=== PATIENT | male | born 1965 | race Caucasian/White ===

== ENCOUNTER 2018-07-04 09:03 | Observation (INO) ==
[2018-07-04] MEDS ORDERED: 0.9 % Sodium Chloride 1,000 ML IVC ONE (09:09)
--- NOTE | 2018-07-04 09:12 | Emergency Department Note ---
Disposition Clinical Impression: Hallucinations, Frequent falls, Weakness generalized Disposition: Admitted As Inpatient Condition: Fair Forms: ED Satisfaction Letter Time of Disposition: 12:25 Fall HPI - General Chief Complaint: ED Fall Stated Complaint: frequent falls at home, back pain Time Seen by Provider: 07/04/18 09:08 Source: patient, EMS Mode of arrival: EMS Limitations: no limitations Nursing Notes Reviewed: Yes Vital Signs Reviewed: Yes - History of Present Illness Pt Subjective Complaint: fall Onset (ago): hour(s) Fall From: standing Fall Witnessed: no Place Fall Occurred: home Loss of Consciousness: none Prolonged Down Time?: unclear Symptoms Prior to Fall: none Context: other (Patient states that someone was trying to break into his house we called the police and in the excitement he says he tripped and fell to the ground. On him on the ground. Called EMS.) Location of injury: back Location of injury - extremities: Right: elbow (Abrasion) Severity: moderate Quality: sharp Associated symptoms (after fall): Denies: headache, neck pain, numbness - Related Data Home Medications Medication Instructions Recorded Confirmed Acetaminophen [Tylenol] 500 mg PO Q6HR PRN 06/26/18 06/27/18 Alogliptin Benzoate [Alogliptin] 25 mg PO DAILY 06/26/18 06/27/18 Aspirin [Lo-Dose Aspirin EC] 81 mg PO DAILY 06/26/18 06/27/18 Atorvastatin [Lipitor] 40 mg PO HS 06/26/18 06/27/18 Calcitriol [Rocaltrol] 0.25 mcg PO SUTUTH 06/26/18 06/27/18 Cholecalciferol (Vitamin D3) 1,000 unit PO QAM 06/26/18 06/27/18 [Vitamin D3] Labetalol HCl 400 mg PO BID 06/26/18 06/27/18 NIFEdipine XL (24 HR) [Procardia 30 mg PO DAILY 06/26/18 06/27/18 XL] Omeprazole [PriLOSEC] 20 mg PO DAILY 06/26/18 06/27/18 Tamsulosin [Flomax] 0.4 mg PO DAILY 06/26/18 06/27/18 Ammonium Lactate 1 - 2 gm TP QID PRN 06/27/18 06/27/18 Ergocalciferol (VITAMIN D2) 50,000 unit PO QWEEK 06/27/18 06/27/18 [Vitamin D2] GlipiZIDE XL (24 HR) [Glucotrol XL] 10 mg PO DAILY 06/27/18 06/27/18 Previous Rx's Medication Instructions Recorded Ketorolac [Toradol] 10 mg PO Q6HR #20 tablet 06/26/18 PredniSONE [Deltasone] 40 mg PO DAILY #10 tablet 06/26/18 Allergies Allergy/AdvReac Type Severity Reaction Status Date / Time No Known Allergies Allergy Verified 06/27/18 16:42 All systems ED: reviewed and negative except as stated. Constitutional: Denies: fever, chills Eyes: Denies: vision change ENT ED: Denies: ear pain, throat pain, congestion Cardiovascular: Denies: chest pain, palpitations Respiratory: Denies: cough, dyspnea Gastrointestinal: Denies: abdominal pain, vomiting, diarrhea Musculoskeletal: Reports: back pain. Denies: neck pain Integumentary: Denies: rash Neurological: Denies: headache, numbness Fall PMH - Past Medical History Medical history: Reports: CVA, diabetes, hypertension, other Psychiatric history: Reports: no psych history - Social History Smoking Status: Never smoker Alcohol use: Reports: none Drug use: Reports: none Physical Exam - General Limitations: no limitations General appearance: alert, in no apparent distress - Head Head exam: normocephalic, other (Abrasion to top of head) - Eye Eye exam: Present: normal appearance, PERRL, EOMI. Absent: scleral icterus, conjunctival injection, nystagmus - ENT ENT exam: normal exam, normal oropharynx, mucous membranes moist, normal external ear exam - Neck Neck exam: Present: normal inspection, trachea midline. Absent: tenderness - Chest Chest inspection: Present: normal inspection, symmetric chest wall rise. Absent: tenderness - Respiratory Respiratory exam: Present: normal lung sounds bilaterally. Absent: respiratory distress, wheezes - Cardiovascular Cardiovascular exam: Present: normal rhythm, tachycardia, normal heart sounds - Abdominal Exam Abdominal exam: Present: soft, Non-Tender, normal bowel sounds - Extremities Exam Extremities exam: Present: full ROM, other (Small abrasion to right elbow). Absent: tenderness - Expanded Lower Extremity Exam Hip/Pelvis exam: Present: normal inspection. Absent: tenderness - Neurological Exam Neurological exam: Present: alert, oriented X3. Absent: motor sensory deficit - Psychiatric Psychiatric exam: Present: normal affect, normal mood - Skin Skin exam: Present: warm, diaphoresis. Absent: rash Course Course Narrative: Patient presents emergent from it while he himself is describing a simple fall and gives good reasoning for the fall. However that does not explain Why he could not get up. According to nursing staff, he has had a couple falls. On my exam he is alert and oriented but he is tachycardic and hypertensive and is clammy and diaphoretic. It seems like something else is going on at this point besides a simple fall. I am going to work him up from a traumatic standpoint with a head CT and cervical spine CT and lumbar spine CT since is complaining of low back pain. But I am going to do a workup for these abnormal vital signs and apparent weakness and falls. I will get some IV fluids into him. Full workup. Disposition will be based on diagnostic results and reevaluation. - Reevaluation(s) Reevaluation #1: Patient's blood work is all come back okay. Urinalysis is negative. His imaging studies are fine. Kidney functions are little bit elevated but they are not really far off her baseline. So not finding anything to clearly make a diagnosis here. However I am being told by caregivers that the patient is hallucinating over the past few days. His mental status is off. They talk about him saying that he seeing groundhog's in his bathtub. Twice today he thought somebody was trying to break into his house and that is one of the reasons he fell. We do not know the validity of that. While he was on the backboard he was tachycardic and little bit diaphoretic and hypertensive. However was really unremarkable backboard and he was able sit up at all settle down. But I feel that there is something wrong with this patient. I just cannot put my finger on the diagnosis. I think he needs to be admitted to the hospital for little bit further workup and observed to see if this changes or if anything actually makes itself clear. I discussed the case with the hospitalist. He is accepted the patient for admission. Time: 12:20 - Consultations Consultation #1: Dr. Munoz, hospitalist - I discussed the case with the hospitalist. He accepted the patient for admission Time: 12:15 Vital Signs Temperature 99 F 07/04/18 09:07 Pulse Rate 130 07/04/18 09:07 Respiratory Rate 22 07/04/18 09:07 Blood Pressure 205/149 07/04/18 09:07 O2 Sat by Pulse Oximetry 97 07/04/18 09:07 Temperature 99 F 07/04/18 09:07 Pulse Rate 108 07/04/18 11:55 Respiratory Rate 18 07/04/18 11:55 Blood Pressure 156/100 07/04/18 11:55 O2 Sat by Pulse Oximetry 96 07/04/18 11:55 Oxygen Delivery Oxygen Delivery Room Air Fall - Medical Records Medical records reviewed: Yes I reviewed the patient's medical records. - Lab Data Lab results reviewed: Yes I reviewed the patient's lab results. Result diagrams: 07/04/18 09:23 07/04/18 09:23 Lab Results 07/04/18 07/04/18 07/04/18 Range/Units 09:23 09:23 09:23 WBC 6.7 (4.3-11.1) K/mcL RBC 3.90 L (4.19-5.50) M/mcL Hgb 11.9 L (12.9-16.9) g/dL Hct 35.7 L (37.5-50.1) % MCV 91.5 (83.0-100.0) fL MCH 30.5 (28.0-33.3) pg MCHC 33.3 (31.6-35.5) g/dL RDW 12.6 (11.5-14.5) % Plt Count 194 (140-400) K/mcL MPV 10.5 (9.4-12.4) fL Immature Gran % 0.4 (0-4) % Seg Neutrophils % 68.1 % Lymphocytes % 15.3 % Monocytes % 12.2 % Eosinophils % 3.1 % Basophils % 0.9 % Neutrophils # 4.6 (1.6-8.9) K/mcL Lymphocytes # 1.0 (0.6-4.6) K/mcL Monocytes # 0.8 (0.0-1.3) K/mcL Eosinophils # 0.2 (0.0-0.6) K/mcL Basophils # 0.1 (0.0-0.2) K/mcL Sodium 140 (136-145) mEq/L Potassium 4.3 (3.5-5.1) mEq/L Chloride 106 (98-107) mEq/L Carbon Dioxide 26 (23-29) mEq/L BUN 26 H (6-20) mg/dL Creatinine 1.99 H (0.70-1.30) mg/dL Est GFR ( Amer) 43 L (> 60) Est GFR (Non-Af Amer) 35 L (> 60) BUN/Creatinine Ratio 13 (6-26) Glucose 188 H (70-105) mg/dL Calculated Osmolality 300 (280-300) Lactic Acid 1.2 (0.5-2.2) mmol/L Calcium 9.6 (8.6-10.3) mg/dL Total Bilirubin 1.0 (0.3-1.0) mg/dL Direct Bilirubin 0.2 (0.0-0.2) mg/dL Indirect Bilirubin 0.8 (0.0-1.2) mg/dL AST 21 (13-39) Units/L ALT 26 (7-52) Units/L Alkaline Phosphatase 128 H (34-104) Units/L Creatine Kinase (30-223) Units/L Troponin I < 0.03 (< 0.04) ng/mL Serum Total Protein 7.7 (6.4-8.9) g/dL Albumin 4.5 (3.5-5.7) g/dL Globulin 3.2 (2.4-3.5) g/dL Albumin/Globulin Ratio 1.4 (1.1-2.2) Urine Color (Yellow) Urine Clarity (Clear) Urine pH (5.0-8.0) pH Units Ur Specific [place] (1.010-1.025) Urine Protein (Neg-Trace) mg/dL Urine Glucose (UA) (Normal) mg/dL Urine Ketones (Negative) mg/dL Urine Blood (Negative) Urine Nitrite (Negative) Urine Bilirubin (Negative) Urine Urobilinogen (Normal) mg/dL Ur Leukocyte Esterase (Negative) Urine Microscopic RBC (0-3) per hpf Urine Microscopic WBC (0-3) per hpf Ur Squamous Epith Cells (None-Few) per lpf Amorphous Sediment (Few) Urine Bacteria (None-Few) per hpf Ur Culture Indicated? (NO) Ur Drug Screen Interp 07/04/18 07/04/18 07/04/18 Range/Units 09:23 11:10 12:00 WBC (4.3-11.1) K/mcL RBC (4.19-5.50) M/mcL Hgb (12.9-16.9) g/dL Hct (37.5-50.1) % MCV (83.0-100.0) fL MCH (28.0-33.3) pg MCHC (31.6-35.5) g/dL RDW (11.5-14.5) % Plt Count (140-400) K/mcL MPV (9.4-12.4) fL Immature Gran % (0-4) % Seg Neutrophils % % Lymphocytes % % Monocytes % % Eosinophils % % Basophils % % Neutrophils # (1.6-8.9) K/mcL Lymphocytes # (0.6-4.6) K/mcL Monocytes # (0.0-1.3) K/mcL Eosinophils # (0.0-0.6) K/mcL Basophils # (0.0-0.2) K/mcL Sodium (136-145) mEq/L Potassium (3.5-5.1) mEq/L Chloride (98-107) mEq/L Carbon Dioxide (23-29) mEq/L BUN (6-20) mg/dL Creatinine (0.70-1.30) mg/dL Est GFR ( Amer) (> 60) Est GFR (Non-Af Amer) (> 60) BUN/Creatinine Ratio (6-26) Glucose (70-105) mg/dL Calculated Osmolality (280-300) Lactic Acid (0.5-2.2) mmol/L Calcium (8.6-10.3) mg/dL Total Bilirubin (0.3-1.0) mg/dL Direct Bilirubin (0.0-0.2) mg/dL Indirect Bilirubin (0.0-1.2) mg/dL AST (13-39) Units/L ALT (7-52) Units/L Alkaline Phosphatase (34-104) Units/L Creatine Kinase 259 H (30-223) Units/L Troponin I (< 0.04) ng/mL Serum Total Protein (6.4-8.9) g/dL Albumin (3.5-5.7) g/dL Globulin (2.4-3.5) g/dL Albumin/Globulin Ratio (1.1-2.2) Urine Color Yellow (Yellow) Urine Clarity Clear (Clear) Urine pH 5.5 (5.0-8.0) pH Units Ur Specific [place] 1.025 (1.010-1.025) Urine Protein 30 H (Neg-Trace) mg/dL Urine Glucose (UA) 100 H (Normal) mg/dL Urine Ketones Trace H (Negative) mg/dL Urine Blood Trace-lysed H (Negative) Urine Nitrite Negative (Negative) Urine Bilirubin Negative (Negative) Urine Urobilinogen Normal (Normal) mg/dL Ur Leukocyte Esterase Negative (Negative) Urine Microscopic RBC 0-3 (0-3) per hpf Urine Microscopic WBC 0-3 (0-3) per hpf Ur Squamous Epith Cells Few (None-Few) per lpf Amorphous Sediment Moderate H (Few) Urine Bacteria Few (None-Few) per hpf Ur Culture Indicated? YES A (NO) Ur Drug Screen Interp See Below - Radiology Data Radiology results reviewed: Yes I reviewed the patient's radiology results. - EKG Data EKG attestation: Yes I reviewed and interpreted this EKG. EKG results narrative: Twelve-lead EKG performed at 9:23 AM. Ordered, the and interpreted by ED physician shows sinus tachycardia rate of 122. Normal axis. Good hour progression across precordium. No obvious acute ischemic changes. Twelve-lead EKG #2 performed at 12:21 PM. Ordered, reviewed and interpreted by ED physician shows sinus rhythm at a rate of 95.. Good hour progression across precordium. No acute ischemic changes. Lead V3 is off but EKG otherwise looks fine.
[2018-07-04 09:41] LABS: Basophils # 0.1 K/mcL (0.0-0.2); Basophils % 0.9 %; Eosinophils # 0.2 K/mcL (0.0-0.6); Eosinophils % 3.1 %; Hematocrit 35.7 % (37.5-50.1); Hemoglobin 11.9 g/dL (12.9-16.9); Immature Granulocytes % 0.4 % (0-4); Lymphocytes % 15.3 %; Mean Corpuscular HGB Conc 33.3 g/dL (31.6-35.5); Mean Corpuscular Hemoglobin 30.5 pg (28.0-33.3); Mean Corpuscular Volume 91.5 fL (83.0-100.0); Mean Platelet Volume 10.5 fL (9.4-12.4); Monocytes # 0.8 K/mcL (0.0-1.3); Monocytes % 12.2 %; Neutrophils # 4.6 K/mcL (1.6-8.9); Platelet Count 194 K/mcL (140-400); Red Cell Distribution Width 12.6 % (11.5-14.5); Segmented Neutrophils % 68.1 %; White Blood Count 6.7 K/mcL (4.3-11.1)
[2018-07-04 09:56] LABS: Alanine Aminotransferase 26 Units/L (7-52); Albumin 4.5 g/dL (3.5-5.7); Albumin/Globulin Ratio 1.4 (1.1-2.2); Alkaline Phosphatase 128 Units/L (34-104); Aspartate Amino Transferase 21 Units/L (13-39); BUN/Creatinine Ratio 13 (6-26); Bilirubin,Direct 0.2 mg/dL (0.0-0.2); Bilirubin,Indirect 0.8 mg/dL (0.0-1.2); Blood Urea Nitrogen 26 mg/dL (6-20); Calcium 9.6 mg/dL (8.6-10.3); Carbon Dioxide 26 mEq/L (23-29); Chloride 106 mEq/L (98-107); Globulin 3.2 g/dL (2.4-3.5); Glucose 188 mg/dL (70-105); Osmolality,Calculated 300 (280-300); Potassium 4.3 mEq/L (3.5-5.1); Sodium 140 mEq/L (136-145); Total Protein 7.7 g/dL (6.4-8.9); eGFR For African Americans 43 (> 60); eGFR For Non-African Americans 35 (> 60)
[2018-07-04 09:59] LABS: Troponin I < 0.03 ng/mL (< 0.04)
[2018-07-04 11:16] LABS: Bilirubin,Urine Negative (Negative); Blood,Urine Trace-lysed (Negative); Clarity,Urine Clear (Clear); Color,Urine Yellow (Yellow); Glucose,Urine (UA) 100 mg/dL (Normal); Ketones,Urine Trace mg/dL (Negative); Leukocyte Esterase,Urine Negative (Negative); Nitrite,Urine Negative (Negative); PH,Urine 5.5 pH Units (5.0-8.0); Protein,Urine 30 mg/dL (Neg-Trace); Specific Gravity,Urine 1.025 (1.010-1.025); Urobilinogen,Urine Normal (Normal)
[2018-07-04 11:30] LABS: Amorphous Sediment,Urine Moderate (Few); Bacteria,Urine Few per hpf (None-Few); RBC,Urine 0-3 per hpf (0-3); Squamous Epithelial Cell,Urine Few per lpf (None-Few); WBC,Urine 0-3 per hpf (0-3)
[2018-07-04 12:19] LABS: Amphetamine Screen,Urine Negative ng/mL (Cutoff=1000); Barbiturate Screen,Urine Negative ng/mL (Cutoff=200); Benzodiazepines Screen,Urine Negative ng/mL (Cutoff=200); Cannabinoid Screen,Urine Negative ng/mL (Cutoff = 50); Cocaine Screen,Urine Negative ng/mL (Cutoff= 300); Opiate Screen,Urine Negative ng/mL (Cutoff=300); Phencyclidine Screen,Urine Negative ng/mL (Cutoff=25)
[2018-07-04] MEDS ORDERED: Naloxone 0.4 MG/ML INJ IVP PRN (12:29)
[2018-07-04] MEDS ORDERED: 0.9 % Sodium Chloride 1,000 ML IVC SCH (12:30)
--- NOTE | 2018-07-04 12:40 | Electrocardiograph Report ---
[place] [id number] Test Date: 2018-07-04 Pat Name: Huy Campbell Department: EDP-11 Room: Gender: M Clinical Laboratory Scientist: : 1965 Requested By: Jesse Zayas Order Number: [id number] Reading MD: Mario Garcia Measurements Intervals [place] Rate: 122 P: 51 NM: 149 QRS: 6 QRSD: 93 T: 117 QT: 332 QTc: 473 Interpretive Statements Sinus tachycardia artifact Borderline criteria for Left ventricular hypertrophy in limb leads. Electronically Signed On 07-04-2018 12:39:02 EDT by Mario Garcia
--- NOTE | 2018-07-04 17:04 | Internal Med History&Physical ---
Date of Encounter: 07/04/18 Time of Encounter: 16:25 Assessment and Plan (1) Frequent falls Current visit: Yes Status: Acute Suspect multiple strokes involving brainstem and/or cerebellum. PT and OT evaluations will be done. MRI of head and carotid Doppler studies will be done to further evaluate. Continue aspirin 81 mg daily. (2) CVA (cerebral vascular accident) Current visit: Yes Status: Acute Brain MRI and carotid Doppler studies will be done Qualifiers: CVA mechanism: unspecified Qualified Code(s): I63.9 - Cerebral infarction, unspecified (3) Azotemia Current visit: Yes Status: Acute Suspect acute on chronic renal failure. IV fluids will be given and renal indices will be monitored. (4) Essential hypertension Current visit: No Status: Chronic Continue Procardia and labetalol. (5) Diabetes mellitus Current visit: No Status: Chronic Hemoglobin A1c was 8.4% on 06/26/2018. Continue glipizide and Al ogliptin/Januvia Qualifiers: Diabetes mellitus type: other specified (including AGUEDA) Diabetes mellitus intermodal customer service insulin use: without prison use Diabetes mellitus complication status: with hyperglycemia Qualified Code(s): E13.65 - Other specified diabetes mellitus with hyperglycemia Internal Medicine - H&P: HPI Chief complaint: Multiple falls Admitted From: Emergency Dept Plans for Post Hospital Care: Home History of present illness: Mr. Campbell is a 53 year old male who was brought to emergency room after he experienced a fall in his apartment. He reports he heard someone knocking on his door. He was ambulating to the door and tripped. He lost his balance and fell on the floor. He called EMS and was brought to emergency room. He was evaluated and admitted to [facility] floor for ongoing care needs. He reports having CVAs in 2011 and 2012 leaving him with right arm and leg impairment. He states he has fallen on average 2-3 times per week for many christiana hs-years despite using a wheeled walker. He denies seizures or other neurologic deficits. Past Med Surg Social Fam HX - Past Medical History Medical history: CVA, diabetes, hypertension, other Additional medical history: Developmental delay Psychiatric history: no psych history - Social History Smoking Status: Never smoker Smokeless Tobacco Status: Yes Alcohol use: none Drug use: none Internal Medicine - H&P: Meds Acetaminophen [Tylenol] 500 mg PO Q6HR PRN 06/26/18 [History] Alogliptin Benzoate [Alogliptin] 25 mg PO DAILY 06/26/18 [History] Aspirin [Lo-Dose Aspirin EC] 81 mg PO DAILY 06/26/18 [History] Atorvastatin [Lipitor] 40 mg PO HS 06/26/18 [History] Calcitriol [Rocaltrol] 0.25 mcg PO SUTUTH 06/26/18 [History] Cholecalciferol (Vitamin D3) [Vitamin D3] 1,000 unit PO QAM 06/26/18 [History] Ketorolac [Toradol] 10 mg PO Q6HR #20 tablet 06/26/18 [Rx] Labetalol HCl 400 mg PO BID 06/26/18 [History] NIFEdipine XL (24 HR) [Procardia XL] 30 mg PO DAILY 06/26/18 [History] Omeprazole [PriLOSEC] 20 mg PO DAILY 06/26/18 [History] PredniSONE [Deltasone] 40 mg PO DAILY #10 tablet 06/26/18 [Rx] Tamsulosin [Flomax] 0.4 mg PO DAILY 06/26/18 [History] Ammonium Lactate 1 - 2 gm TP QID PRN 06/27/18 [History] Ergocalciferol (VITAMIN D2) [Vitamin D2] 50,000 unit PO QWEEK 06/27/18 [History] GlipiZIDE XL (24 HR) [Glucotrol XL] 10 mg PO DAILY 06/27/18 [History] Allergy/AdvReac Type Severity Reaction Status Date / Time No Known Allergies Allergy Verified 06/27/18 16:42 All Systems PM: A 10-system review of systems was performed and is negative for pertinent f indings except as documented above in the HPI. Review of systems: Gen.: He states his weight has been stable for several months Cardiovascular: He has history of hypertension but denies VT heart failure angina DVT or pulmonary embolus Respiratory: He smoked from approximately age [age]. He denies chronic lung disease and does not use home oxygen. GI: Denies disorders of his liver gallbladder or exocrine pancreas : He was hospitalized at [facility] approximately one week ago with acute kidney injury. He has BPH. He denies other kidney bladder prostate disorders. Neurologic: As per history of present illness Endocrine: He was diagnosed with DM 2 approximately 2008. He has hyperlipidemia but denies thyroid disease Hematology/oncology: He denies blood disorders cancers or anemia Psychiatric: He denies anxiety depression or other mental health issues [place] skeletal: He states he had a left foot fracture the but did not require surgical intervention. He denies gout or other bone joint or muscle disorders. - Constitutional Vitals: Temp Pulse Resp BP Pulse Ox 98.8 F 104 26 158/75 95 07/04/18 14:32 07/04/18 14:32 07/04/18 14:32 07/04/18 14:32 07/04/18 14:32 Exam: Gen.: He is a well-developed well-nourished male lying comfortably in bed who appears in no acute distress HEENT: Head shows shallow linear laceration on the top of his scalp from earlier fall. Eyes: EOMI. There is no scleral icterus. Mouth: Mucosa is moist. Neck: Supple and nontender. There is no thyromegaly or adenopathy noted. Heart: Regular without murmurs gallops or ectopics Lungs: No wheezes or crackles are heard. Abdomen: Soft and nontender. No masses or guarding are noted. Extremities: There is no cyanosis edema or clubbing noted. Dorsalis pedis and posterior tibial pulses are 1-2 over 2 bilaterally. He has significant bruising of the second third and fourth toes of the right foot. He has a scab on his right elbow area that shows slight serosanguineous oozing. Neurologic: Mental status: He is talkative and a good historian. His speech rhythm is occasionally irregular and broken. Cranial nerves: Smile is symmetric. Forehead wrinkles bilaterally. Tongue protrudes midline. EOMI. Motor: There is no pronator drift. He has difficulty performing rapid finger movements and alternating finger movements with both hands, more on the right than the left. Cerebellar: He has slight tremor on attempting finger to nose testing more with the right hand than the left. Skin: Warm and dry. Internal Med - H&P Results - Labs CBC & Chem 7: 07/04/18 09:23 07/04/18 09:23 Labs: Short CBC 07/04/18 Range/Units 09:23 WBC 6.7 (4.3-11.1) K/mcL Hgb 11.9 L (12.9-16.9) g/dL Hct 35.7 L (37.5-50.1) % Plt Count 194 (140-400) K/mcL Neutrophils # 4.6 (1.6-8.9) K/mcL BMP 07/04/18 09:23 Sodium 140 Potassium 4.3 Chloride 106 Carbon Dioxide 26 BUN 26 H Creatinine 1.99 H Glucose 188 H Calcium 9.6 Cardiac Enzymes 07/04/18 07/04/18 Range/Units 09:23 12:41 Troponin I < 0.03 < 0.03 (< 0.04) ng/mL Liver Function 07/04/18 Range/Units 09:23 Total Bilirubin 1.0 (0.3-1.0) mg/dL Direct Bilirubin 0.2 (0.0-0.2) mg/dL AST 21 (13-39) Units/L ALT 26 (7-52) Units/L Alkaline Phosphatase 128 H (34-104) Units/L Albumin 4.5 (3.5-5.7) g/dL Urine 07/04/18 Range/Units 11:10 Urine Color Yellow (Yellow) Urine Clarity Clear (Clear) Urine pH 5.5 (5.0-8.0) pH Units Ur Specific [place] 1.025 (1.010-1.025) Urine Protein 30 H (Neg-Trace) mg/dL Urine Glucose (UA) 100 H (Normal) mg/dL - Impressions ITS Impressions Cervical Spine CT 07/04/18 09:09 IMPRESSION: No acute fracture of the cervical or lumbar spine. D/ / Cristian López MD / Cristian López MD Interpreting Provider: Cristian López MD Chest X-Ray 07/04/18 09:09 IMPRESSION: No acute abnormality. D/ / Padilla Lua MD / Padilla Lua MD Interpreting Provider: Padilla Lua MD Head CT 07/04/18 09:09 IMPRESSION: No acute intracranial abnormality. Small superficial soft tissue swelling right frontal region. D/ / Cristian López MD / Cristian López MD Interpreting Provider: Cristian López MD Lumbar Spine CT 07/04/18 09:09
[2018-07-04] MEDS: NIFEdipine XL (24 HR) 30 MG TAB.ER.24 PO SCH (18:49)
[2018-07-05 03:35] LABS: Basophils # 0.1 K/mcL (0.0-0.2); Basophils % 1.3 %; Eosinophils # 0.1 K/mcL (0.0-0.6); Eosinophils % 2.8 %; Hematocrit 30.9 % (37.5-50.1); Hemoglobin 10.2 g/dL (12.9-16.9); Immature Granulocytes % 0.6 % (0-4); Lymphocytes # 1.3 K/mcL (0.6-4.6); Lymphocytes % 28.5 %; Mean Corpuscular Hemoglobin 30.7 pg (28.0-33.3); Mean Corpuscular Volume 93.1 fL (83.0-100.0); Mean Platelet Volume 10.4 fL (9.4-12.4); Monocytes # 0.7 K/mcL (0.0-1.3); Monocytes % 13.8 %; Neutrophils # 2.5 K/mcL (1.6-8.9); Platelet Count 175 K/mcL (140-400); Red Blood Count 3.32 M/mcL (4.19-5.50); Red Cell Distribution Width 12.8 % (11.5-14.5); White Blood Count 4.7 K/mcL (4.3-11.1)
[2018-07-05 03:42] LABS: Thyroid Stimulating Hormone 1.246 mcIU/mL (0.340-5.600)
[2018-07-05 04:13] LABS: Calcium 8.9 mg/dL (8.6-10.3); Potassium 3.8 mEq/L (3.5-5.1)
[2018-07-05] MEDS ORDERED: *HR* GlipiZIDE XL (24 HR) 10 MG TABLET PO SCH (08:00)
[2018-07-05] MEDS: NIFEdipine XL (24 HR) 30 MG TAB.ER.24 PO SCH (08:01)
[2018-07-05] MEDS ORDERED: Aspirin 81 MG TAB.CHEW PO SCH (09:00)
[2018-07-05] MEDS ORDERED: *HR* SitaGLIPtin 25 MG TABLET PO SCH (09:00)
[2018-07-05 09:17] LABS: Folate 13.9 ng/mL (3.0-16.0)
[2018-07-05 10:52] VITALS: BP 107/57
[2018-07-05 12:18] LABS: Estimated Average Glucose 194 mg/dl
[2018-07-05] MEDS ORDERED: Cyanocobalamin (B-12) 1,000 MCG/ML VIAL IM ONE (14:53)
--- NOTE | 2018-07-05 14:57 | Discharge Summary ---
Orders not resulted at time of discharge: Pending orders 07/04/18 09:23 Culture,Blood [BC] Stat Date of Encounter: 07/05/18 Time of Encounter: 14:45 - Discharge Diagnosis (1) Frequent falls Priority: Primary Status: Acute (2) CVA (cerebral vascular accident) Priority: Secondary Status: Acute Qualifiers: CVA mechanism: unspecified Qualified Code(s): I63.9 - Cerebral infarction, unspecified (3) Azotemia Priority: Secondary Status: Acute (4) Essential hypertension Priority: Secondary Status: Chronic (5) Diabetes mellitus Priority: Secondary Status: Chronic Qualifiers: Diabetes mellitus type: other specified (including AGUEDA) Diabetes mellitus care home insulin use: without care home use Diabetes mellitus complication status: with hyperglycemia Qualified Code(s): E13.65 - Other specified diabetes mellitus with hyperglycemia Hospital course: Mr. Campbell is a 53 year old male who was brought to emergency room after he experienced a fall in his apartment. He reports he heard someone knocking on his door. He was ambulating to the door and tripped. He lost his balance and fell on the floor. He called EMS and was brought to emergency room. He was evaluated and admitted to [facility] for ongoing care needs. Initial orders were written by the emergency room physician. I saw him on July 04 and performed a history and physical. MRI of brain showed likely tiny focus of subacute infarct in the left parietal periventricular white matter, old infarct in the left thalamus, and small old lacunar infarcts in the left middle cerebellar peduncle and bilateral flores radiata. There was evidence of mild chronic microvascular ischemic change increased in the left parietal periventricular white matter with underlying demyelinating disease not excluded. Carotid Doppler study showed right carotid system essentially normal and left carotid system with nonstenotic plaque. He will continue aspirin 81 mg daily. He had physical therapy and occupational therapy evaluations. He will have resumption of home health services with home PT and OT ordered also. IV fluids were ordered. Ketorolac was discontinued because of azotemia. There was minimal decrease in creatinine to 1.96 on July 05. He will remain off ketorolac at discharge. Anemia testing showed iron 68, transferrin saturation 24%, transferrin 205, ferritin 469, B12 216, and folate 13.9. He received B12 injection prior to discharge and will start oral B12 supplement at home. TSH was normal at 1.246. When I saw him on July 05 he stated he wished to be discharged home. He will follow with his PCP GUSTAVO Briscoe CNP within 1 week. - Time Spent with Patient Total time spent providing and/or coordinating discharge services: - Discharge Medications Prescriptions: New Cyanocobalamin (B-12) [Vitamin B12] 1,000 mcg PO DAILY #30 tablet Continued Ammonium Lactate 1 - 2 gm TP QID PRN PRN Reason: [place] Ergocalciferol (VITAMIN D2) [Vitamin D2] 50,000 unit PO QWEEK GlipiZIDE XL (24 HR) [Glucotrol XL] 10 mg PO DAILY Calcitriol [Rocaltrol] 0.25 mcg PO SUTUTH NIFEdipine XL (24 HR) [Procardia XL] 30 mg PO DAILY Cholecalciferol (Vitamin D3) [Vitamin D3] 1,000 unit PO QAM Atorvastatin [Lipitor] 40 mg PO HS Tamsulosin [Flomax] 0.4 mg PO DAILY Omeprazole [PriLOSEC] 20 mg PO DAILY Acetaminophen [Tylenol] 500 mg PO Q6HR PRN PRN Reason: Pain Labetalol HCl 400 mg PO BID Aspirin [Lo-Dose Aspirin EC] 81 mg PO DAILY Alogliptin Benzoate [Alogliptin] 25 mg PO DAILY Discontinued PredniSONE [Deltasone] 40 mg PO DAILY #10 tablet Ketorolac [Toradol] 10 mg PO Q6HR #20 tablet Home Medications: Acetaminophen [Tylenol] 500 mg PO Q6HR PRN 06/26/18 [History] Alogliptin Benzoate [Alogliptin] 25 mg PO DAILY 06/26/18 [History] Aspirin [Lo-Dose Aspirin EC] 81 mg PO DAILY 06/26/18 [History] Atorvastatin [Lipitor] 40 mg PO HS 06/26/18 [History] Calcitriol [Rocaltrol] 0.25 mcg PO SUTUTH 06/26/18 [History] Cholecalciferol (Vitamin D3) [Vitamin D3] 1,000 unit PO QAM 06/26/18 [History] Labetalol HCl 400 mg PO BID 06/26/18 [History] NIFEdipine XL (24 HR) [Procardia XL] 30 mg PO DAILY 06/26/18 [History] Omeprazole [PriLOSEC] 20 mg PO DAILY 06/26/18 [History] Tamsulosin [Flomax] 0.4 mg PO DAILY 06/26/18 [History] Ammonium Lactate 1 - 2 gm TP QID PRN 06/27/18 [History] Ergocalciferol (VITAMIN D2) [Vitamin D2] 50,000 unit PO QWEEK 06/27/18 [History] GlipiZIDE XL (24 HR) [Glucotrol XL] 10 mg PO DAILY 06/27/18 [History] Cyanocobalamin (B-12) [Vitamin B12] 1,000 mcg PO DAILY #30 tablet 07/05/18 [Rx] Allergies/Adverse Reactions: Allergy/AdvReac Type Severity Reaction Status Date / Time No Known Allergies Allergy Verified 06/27/18 16:42 Date of admission: 07/04/18 12:55 Primary care physician: Phani Briscoe CNP Consults: 07/04/18 15:14 Consult to V Belt Builder [CONS] Routine Reason for SW Consult: Pt had home health/ progressive care unit registered nurse services prior to admission. Maxim and vision matters. 07/04/18 16:56 Consult to Occupational Therapy [CONS] Routine Comment: Evaluate, develop and implement POC Reason for Consult: Frequent falls Does patient have active BEDREST order?: No Is patient medically & hemodynamically stable?: Yes Patient assessed for mobility or mobilized this visit?: Yes Consult to Physical Therapy [CONS] Routine Comment: Evaluate, develop and implement POC Reason for Consult: Frequent falls Does patient have active BEDREST order?: No Is patient medically & hemodynamically stable?: Yes Patient assessed for mobility or mobilized this visit?: Yes - Constitutional Vitals: Temp Pulse Resp BP Pulse Ox 99.1 F 72 18 107/57 94 07/05/18 10:51 07/05/18 10:51 07/05/18 10:51 07/05/18 10:51 07/05/18 10:51 - Patient Status Disposition: Home Health Service Condition: Fair - Discharge Instructions Follow Up With: Phani Briscoe CNP [Primary Care Provider] - 1 week - Diet and Activity Activity: as per physical therapy Diet: advance to your usual diet
--- NOTE | 2018-07-05 15:05 | Physician Discharge Referral ---
Home Health/Hosp Referral Info Transfer to: Home Health Attending Provider: Alexander Provider in Charge Post Discharge: PCP Anny) - Diagnosis (1) Frequent falls Priority: Primary Status: Acute (2) CVA (cerebral vascular accident) Priority: Secondary Status: Acute (3) Azotemia Priority: Secondary Status: Acute (4) Essential hypertension Priority: Secondary Status: Chronic (5) Diabetes mellitus Priority: Secondary Status: Chronic - Respiratory Orders Smoking Cessation: Smoking cessation has been advised. For more information, call the [place] Tobacco Quit Line at 4-962-EYMT-NOW. - Diet/Nutrition Diet/Nutrition Orders: No Concentrated Sweets - Activity Activity Orders: Walker - Services Needed Following services are medically necessary services: Nursing, Home Health Aide, Physical Therapy, Occupational Therapy - Transfer Medications Prescriptions: Cyanocobalamin (B-12) [Vitamin B12] 1,000 mcg PO DAILY #30 tablet Home Medications: Acetaminophen [Tylenol] 500 mg PO Q6HR PRN 06/26/18 [History] Alogliptin Benzoate [Alogliptin] 25 mg PO DAILY 06/26/18 [History] Aspirin [Lo-Dose Aspirin EC] 81 mg PO DAILY 06/26/18 [History] Atorvastatin [Lipitor] 40 mg PO HS 06/26/18 [History] Calcitriol [Rocaltrol] 0.25 mcg PO SUTUTH 06/26/18 [History] Cholecalciferol (Vitamin D3) [Vitamin D3] 1,000 unit PO QAM 06/26/18 [History] Labetalol HCl 400 mg PO BID 06/26/18 [History] NIFEdipine XL (24 HR) [Procardia XL] 30 mg PO DAILY 06/26/18 [History] Omeprazole [PriLOSEC] 20 mg PO DAILY 06/26/18 [History] Tamsulosin [Flomax] 0.4 mg PO DAILY 06/26/18 [History] Ammonium Lactate 1 - 2 gm TP QID PRN 06/27/18 [History] Ergocalciferol (VITAMIN D2) [Vitamin D2] 50,000 unit PO QWEEK 06/27/18 [History] GlipiZIDE XL (24 HR) [Glucotrol XL] 10 mg PO DAILY 06/27/18 [History] Cyanocobalamin (B-12) [Vitamin B12] 1,000 mcg PO DAILY #30 tablet 07/05/18 [Rx] Allergies/Adverse Reactions: Allergy/AdvReac Type Severity Reaction Status Date / Time No Known Allergies Allergy Verified 06/27/18 16:42 Certification: Further, I certify that my clinical findings support that this patient is homebound (i.e. absences from home require considerable and taxing effort and are for medical reasons or hindu services or infrequently or short duration when for other reasons) because: Homebound Reason: Leaving home requires considerable and taxing effort due to condition (Multiple CVAs, fall risk with ambulation) Attestation: My signature below is to certify that this patient is under my care and that I, or nurse practitioner, or a physician's orthotics prosthetics assistant working with me, has a [id number] encounter with this patient.
--- NOTE | 2018-07-09 12:55 | Electrocardiograph Report ---
[address] [address] Test Date: 2018-07-04 Pat Name: Huy Campbell Department: EDP-11 Room: [facility] Gender: M Assistant Food Service Manager: : 1965 Requested By: Jesse Zayas Order Number: [id number] Reading MD: Mraio Garcia Measurements Intervals [place] Rate: 95 P: 48 MS: 152 QRS: 29 QRSD: 90 T: 59 QT: 364 QTc: 458 Interpretive Statements Incomplete analysis due to missing data in precordial lead(s) Sinus rhythm Missing lead(s): V3 12 Lead; Asuncion Electronically Signed On 07-09-2018 12:54:08 EDT by Mario Garcia
== END 2018-07-05 15:45 | disposition home health service (06) ==
LOC: EMEROOPIK 09:03 → INPPIK 09:03
PROVIDERS: ADMIT Internal Medicine; ATTEND Internal Medicine